=== PATIENT | female | born 1985 | race Caucasian/White ===

== ENCOUNTER 2019-06-02 14:02 | Emergency (ER) | payer OTHER ==
[2019-06-02] MEDS ORDERED: METHYLPREDNISOLONE INJ 125 MG/2 ML SDV IV ONE (14:08)
[2019-06-02] MEDS ORDERED: FAMOTIDINE INJ/PF 20 MG/2 ML SDV IV ONE (14:08)
[2019-06-02] MEDS ORDERED: DIPHENHYDRAMINE HCL 50 MG/ML VIAL IV ONE ×2 (14:09→14:15)
[2019-06-02] MEDS ORDERED: EPINEPHRINE INJ/PF 1 MG/1 ML AMPULE IM ONE (14:09)
--- NOTE | 2019-06-02 14:14 | ER Document Report ---
ED Medical Screen (RME) - General Stated Complaint: POSSIBLE ALLERGIC REACTION - HPI Notes: 06/02/19 14:10 Patient is a 33-year-old female who presents to the ED for evaluation after a possible allergic reaction. She ate Eddi fruit for the first time. Several minutes afterwards she felt an itching and swelling in her throat. She could not stop coughing. She denied really feeling short of breath. She denies any swelling of her tongue or lips. She has never had an allergic reaction in the past. Denies any pain. - Related Data Smoking: Non-smoker Frequency of alcohol use: Rare Drug Abuse: None Pertinent History: No major medical problems Home Medications: None Past Medical History - General Information source: Patient - Social History Cigarette use (# per day): No Frequency of alcohol use: Rare Drug Abuse: None - Medical History Medical History: Negative Physical Exam - Notes Notes: Screening exam performed. Patient in a moderate amount of distress. Mildly tachypneic, coughing. Oromucosa is moist. Very mild edema of the uvula is appreciated. Heart is regular rate and rhythm, lungs show wheezes in the base. Mild erythema to the anterior neck and chest noted. Course - Re-evaluation Re-evalutation: 06/02/19 14:13 Patient presented to the emergency department for evaluation. Given the swelling and coughing, as well as wheezing, I am concerned about anaphylaxis in this patient. Medications ordered, including Solu-Medrol, Pepcid, Benadryl, epinephrine. Patient stabilized. I have greeted and performed a rapid initial assessment of this patient. A comprehensive ED assessment and evaluation of the patient, analysis of test results and completion of medical decision making process will be conducted by an additional ED providers.
--- NOTE | 2019-06-02 15:08 | ER Document Report ---
ED General - General Chief Complaint: Allergic Reaction Stated Complaint: POSSIBLE ALLERGIC REACTION Time Seen by Provider: 06/02/19 14:40 Notes: Patient is a 33-year-old female that presents to the emergency department for chief complaint of allergic reaction. Patient had ingested some wandy fruit, while at work today, and started coughing, having sore throat, had runny eyes and nose, and continued to cough and felt very uncomfortable, and was concerned for allergic reaction. She was not choking. She was seen by one my colleagues initially, and was given IM epinephrine, Benadryl and Solu-Medrol, is feeling much better now, denies any sore throat or difficulty breathing, nausea, vomiting or abdominal pain. No prior history of allergies to environmental exposures, or 2 medications in the past. Denies any pain at this time. Past Medical History: Denies chronic medical conditions Past Surgical History: Denies recent or pertinent surgical history Social History: Denies tobacco, alcohol or illicit drug use. Family History: Reviewed and noncontributory for presenting illness Allergies: Reviewed, see documented allergy list. REVIEW OF SYSTEMS: Other than noted above, the 12 point review of systems was reviewed with the patient and were negative, all pertinent findings are included in the HPI. PHYSICAL EXAMINATION: Vital signs reviewed, nursing noted reviewed. GENERAL: Well-appearing, well-nourished and in no acute distress. HEAD: Atraumatic, normocephalic. EYES: Eyes appear normal, extraocular movements intact, sclera anicteric, conjunctiva are normal. ENT: nares patent, oropharynx clear without exudates. Moist mucous membranes. Uvula midline, nonedematous. NECK: Normal range of motion, supple without lymphadenopathy LUNGS: Breath sounds clear to auscultation bilaterally and equal. No wheezes rales or rhonchi. HEART: Regular rate and rhythm without murmurs ABDOMEN: Soft, nontender, normoactive bowel sounds. No rebound, guarding, or rigidity. No masses appreciated. EXTREMITIES: Nontender, good range of motion, no pitting or edema. NEUROLOGICAL: No focal neurological deficits. Moves all extremities spontaneously Motor and sensory grossly intact on exam. PSYCH: Normal mood, normal affect. SKIN: Warm, Dry, normal turgor, no rashes or lesions noted on exposed skin - Related Data Allergies/Adverse Reactions: jackfruit Allergy (Uncoded 06/02/19 14:14) Home Medications: None Past Medical History - General Information source: Patient - Social History Smoking Status: Never Smoker Cigarette use (# per day): No Frequency of alcohol use: Rare Drug Abuse: None Family History: Reviewed & Not Pertinent Patient has suicidal ideation: No Patient has homicidal ideation: No - Medical History Medical History: Negative Renal/ Medical History: Denies: Hx Peritoneal Dialysis Physical Exam - Vital signs Vitals: Pulse Ox 100 06/02/19 14:07 Course - Re-evaluation Re-evalutation: Patient seen and examined vital signs reviewed. Patient was evaluated and treated as appropriate for the patient's presenting symptoms and complaint, with consideration of any critical or life threatening conditions that may be associated with their obtained history and exam as noted above. Patient was treated with IM epinephrine, IV Benadryl, Solu-Medrol and Pepcid The patient was re-evaluated and was stable and improved, will continue to monitor after receiving IM epinephrine Evaluation was most consistent with acute anaphylactic reaction, given prescription for epipen Plan of care was discussed with the patient at this point, after careful consideration I feel that that patient can be discharged from the emergency department, the patient was educated treatments and reasons to return to the emergency department based on their presumed diagnosis as noted above, they were advised to followup with a primary care physician in 2-3 days. Patient was agreeable to plan of care. *Note is created using voice recognition software and may contain spelling, syntax or grammatical errors. - Vital Signs Vital signs: Temp Pulse Resp BP Pulse Ox 98.6 F 20 136/73 H 98 06/02/19 14:09 06/02/19 15:01 06/02/19 15:00 06/02/19 15:01 Critical Care Note - Critical Care Note Total time excluding time spent on procedures (mins): 35 Comments: Critical care time 35 minutes exclusive from separate billable procedures for a patient requiring complex medical decision making, and high potential for clinical deterioration. The patient received IM epinephrine, required repeat evaluation, and monitoring after acute allergic reaction. Time spent obtaining history from patient or surrogate, discussions with consultants, development of treatment plan with patient or surrogate, evaluation of patient's response to treatment, examination of patient, ordering and performing treatments and interventions, ordering and review of laboratory studies, re-evaluation of patient's condition, ordering and review of radiographic studies and review of old charts Discharge - Discharge Clinical Impression: Anaphylactic reaction Qualifiers: Encounter type: initial encounter Qualified Code(s): T78.2XXA - Anaphylactic shock, unspecified, initial encounter Condition: Stable Disposition: HOME, SELF-CARE Instructions: Acute Allergic Reaction ([facility]) Prescriptions: Epinephrine [Epipen] 0.3 mg IJ PRN PRN #1 [email or web address] PRN Reason: severe allergic reaction Referrals: TOPHER MONTES MD [ACTIVE STAFF] - Follow up as needed
[2019-06-02 16:21] VITALS: BP 129/76
== END 2019-06-02 16:26 | disposition home or self-care (01) ==
LOC: ER 14:02 → EDBD 14:02 → ER 16:26
DX: T78.2XXA Anaphylactic shock, unspecified, initial encounter (principal); R05 Cough; J02.9 Acute pharyngitis, unspecified; R09.89 Other specified symptoms and signs involving the circulatory and respiratory systems
CPT/HCPCS: 99291; 96372; 96374; 96375; J1200; J0171; J2930; S0028